=== PATIENT | male | born 1975 | race Caucasian/White ===

== ENCOUNTER 2018-10-26 21:15 | Emergency (ER) | payer BC, OTHER ==
[~2018-10-26] VITALS: Ht 170.2 cm; Wt 87.9 kg
[~2018-10-26 21:15] MED LIST: BACI28.34 TOP; BIOT1TAB12 PO; IBUP-1542 PO
[2018-10-26 21:17] VITALS: BP 130/75; PULSE 68; RESP 19; Ht 170.2 cm; Wt 87.9 kg
[2018-10-26] MEDS ORDERED: BACITRACIN 0.5%/ZINC 28.35 GM OINT TOP ONE (22:00)
== END 2018-10-26 22:18 | disposition home or self-care (01) ==
LOC: FTE 21:15
DX: S61.313A Laceration without foreign body of left middle finger with damage to nail, initial encounter (principal); F17.210 Nicotine dependence, cigarettes, uncomplicated; W26.0XXA Contact with knife, initial encounter; Y92.9 Unspecified place or not applicable
CPT/HCPCS: 99282